=== PATIENT | female | born 1995 | race Caucasian/White ===

== ENCOUNTER 2017-08-30 21:12 | Inpatient (IN) | payer MEDICAID ==
[2017-08-30] MEDS ORDERED: Sodium Chloride 0.9% 10 ML Syringe FLUSH PRN (23:21)
[2017-08-31] MEDS ORDERED: Naloxone 0.4 MG/ML SDV IVPUSH PRN ×2 (01:27→03:34)
[2017-08-31] MEDS ORDERED: fentaNYL 100 MCG/2 ML SDV EPIDUR ONE (02:15)
[2017-08-31] MEDS ORDERED: Citric Acid/Sodium Citrate Solution 30 ML Cup PO ONE (02:15)
[2017-08-31] MEDS ORDERED: ePHEDrine 50 MG/ML SDV IV ONE (02:15)
[2017-08-31] MEDS ORDERED: fentaNYL 300 MCG in Ropivacaine 200 ML EPIDUR ONE (02:15)
[2017-08-31] MEDS ORDERED: hydrOXYzine HCl 50 MG/ML SDV IM PRN ×2 (03:34)
[2017-08-31] MEDS ORDERED: Promethazine 25 MG/ML SDV IV PRN (03:34)
[2017-08-31] MEDS ORDERED: Naloxone 0.4 MG in Sodium Chloride 0.9% 100 ML IV PRN (03:34)
[2017-08-31] MEDS ORDERED: ePHEDrine 50 MG/ML SDV IVPUSH PRN (03:34)
[2017-08-31] MEDS ORDERED: diphenhydrAMINE 50 MG/ML SDV IVPUSH PRN (03:34)
[2017-08-31] MEDS ORDERED: Ondansetron 4 MG/2 ML SDV IVPUSH PRN (03:37)
[2017-08-31] MEDS ORDERED: Lactated Ringers 500 ML IV ONE (03:45)
[2017-08-31] MEDS: ePHEDrine 50 MG/ML SDV IVPUSH PRN ×4 (05:35→05:50)
[2017-08-31] MEDS: Lactated Ringers 1,000 ML IV SCH ×3 (05:52→12:03)
[2017-08-31] MEDS ORDERED: Oxytocin/Normal Saline 10 UNIT/1,000 ML BAG IV SCH (08:15)
[2017-08-31] MEDS ORDERED: Sodium Chloride 0.9% 10 ML Syringe FLUSH PRN (13:39)
[2017-08-31] MEDS: Ibuprofen 800 MG Tab PO SCH ×2 (14:40→21:46)
[2017-08-31] MEDS ORDERED: Lidocaine 1% 20 ML MDV INJECT ONE (15:07)
[2017-08-31] MEDS ORDERED: diphenhydrAMINE 25 MG Cap PO PRN (15:29)
[2017-09-01] MEDS: Ibuprofen 800 MG Tab PO SCH ×2 (10:01→18:34)
[2017-09-01 19:29] VITALS: BP 123/77
--- NOTE | 2017-09-02 10:03 | DISCH ---
DISCHARGE DATE: 09/01/2017 Conor Goldberg is a 22-year-old, 2, para 2, female 1 day . Up, ambulating, doing well. No complicating issues. PHYSICAL EXAMINATION: U-2, tone satisfactory, perineum without conflict, voiding well. LABORATORY DATA: hemoglobin 9.1. ASSESSMENT: day #1. PLAN: Will be discharged later today once baby's well being has been assessed. Will be discharged home with ibuprofen or Tylenol at appropriate doses, vitamin 1 daily long-term care with lifting restrictions, activity, no napkins, no tampons, complementary care and well being, good nutrition, nursing the baby. /[id number] AMILCAR/WILLIAM
--- NOTE | 2017-09-02 11:56 | HP ---
ADMISSION DATE: 08/30/2017 HISTORY OF PRESENT ILLNESS: Conor Goldberg is a 22-year-old, 2, para 1 female, 39 weeks' gestation, admitted with spontaneous labor. Kavon off and on, she was admitted the night prior to this note. Satisfactory well being. Intact membranes. Group B strep negative. Had made dilatation changes in 2-4 cm. She was walked into the evening hours. Exam was satisfactory on admission. Good heart tones. rolfer hours, the epidural was placed with good analgesic benefit created conflict with quality of her contractions, but slept well through the night. Amniotomy was performed on the morning of 08/31/2016 with nice clear copious fluids. Labor was reluctant. Pitocin was started. Labor was created, but without great velocity. About 1 cm every 2 hours satisfactory well being. When she went to complete, I was asked to attend the delivery. Found to be in LUCILLE presentation. heart tones were satisfactory. Second stage of labor progressed without complications. About 6 quality pushes over 50 minutes time delivered in LUCILLE presentation without episiotomy. Perineum was protected. Nose, mouth, and oropharynx were suctioned, no nuchal cord delivered and Fidel is without complicating process. Child was suctioned again and placed on mom's tummy. Cord was left intact. Nursing staff addressed the well-being of the child, respiratory difficulty, was warmed and stimulated. Once the cord had quit pulsating, cord was clamped, three-cord vessels identified. Nursing staff addressed the child's well-being. Male , weight 8 pounds, scores 9 and 9. Cord blood was obtained for investigation as appropriate. There was spontaneous placental separation, three cord vessels intact. Uterine tone was maintained by intravenous Pitocin 500 mL over an hour, there was one brief episode of apnea, which responded to uterine stimulation. The perineum was inspected. There were couple of lateral abrasions on the labia minora superiorly. Nonbleeding in nature. Cervix was identified. Free of lacerations. Rectal exam was satisfactory. ASSESSMENT: 1. Normal spontaneous vaginal delivery. 2. Epidural analgesia. 3. Pitocin augmentation, vaginal delivery without episiotomy. Small vaginal abrasions. 4. An 8-pound 0-ounce male , scores of 9 and 9. 5. Nursing mom. PLAN: course, close observation. Pitocin will run accordingly, intervention and care as appropriate. /[id number] AMILCAR/WILLIAM
== END 2017-09-01 19:40 | disposition home or self-care (01) | DRG 560 ==
LOC: FB.OBCHECK 21:12 → FB.OB 21:15 → FB.OBCHECK 21:17 → FB.OB 21:18
PROVIDERS: ADMIT Family Medicine; ATTEND Family Medicine
PROC: 10E0XZZ Delivery of Products of Conception, External Approach (ICD-10-PCS; principal; 2017-08-30)
PROC: 10907ZC Drainage of Amniotic Fluid, Therapeutic from Products of Conception, Via Natural or Artificial Opening (ICD-10-PCS; 2017-08-30)
PROC: 3E033VJ Introduction of Other Hormone into Peripheral Vein, Percutaneous Approach (ICD-10-PCS; 2017-08-30)
PROC: 6A550ZT Pheresis of Cord Blood Stem Cells, Single (ICD-10-PCS; 2017-08-30)
DX: O75.89 Other specified complications of labor and delivery (principal); Z3A.39 39 weeks gestation of pregnancy; Z37.0 Single live birth
CPT/HCPCS: 36415; 51701; 59300; 59409; 85014; 85018; 99211; A9270-GY; J2590; J2795; J3010; J3410; J7050; J7120

== ENCOUNTER 2022-04-10 20:39 | Emergency (ER) | payer MEDICAID ==
[2022-04-11 02:54] VITALS: BP 132/89; PULSE 114
== END 2022-04-10 22:20 | disposition home or self-care (01) ==
LOC: FB.ED 20:39
DX: S99.922A Unspecified injury of left foot, initial encounter (principal); E66.9 Obesity, unspecified; Z68.33 Body mass index [BMI] 33.0-33.9, adult; W22.8XXA Striking against or struck by other objects, initial encounter
CPT/HCPCS: 73630-LT; 99283

== ENCOUNTER 2023-08-08 19:40 | Emergency (ER) | payer MEDICAID ==
[2023-08-08] MEDS ORDERED: Ondansetron 4 MG Tab.DIS PO ONE (19:41)
[2023-08-08] MEDS ORDERED: Sodium Chloride 0.9% 10 ML Syringe FLUSH PRN (19:58)
[2023-08-08] MEDS ORDERED: Ondansetron 4 MG/2 ML SDV IVPUSH ONE (19:58)
[2023-08-08] MEDS ORDERED: Sodium Chloride 0.9% 1,000 ML IV SCH (20:00)
[2023-08-08 20:19] LABS: BLOOD UREA NITROGEN,BUN 21 mg/dL (7-18); CALCIUM 9.3 mg/dL (8.6-10.2); CARBON DIOXIDE,CO2 28 mmol/L (21-32); CHLORIDE,CL 103 mmol/L (100-110); CREATININE 0.6 mg/dL (0.55-1.02); ESTIMATED GFR 126 mL/min (>60); GLUCOSE RANDOM 95 mg/dL (80-116); POTASSIUM,K 3.5 mmol/L (3.5-5.3); SODIUM,NA 136 mmol/L (135-145)
[2023-08-08 20:32] VITALS: BP 118/85; PULSE 81
== END 2023-08-08 21:24 | disposition home or self-care (01) ==
LOC: FB.ED 19:40
DX: U07.1 COVID-19 (principal); E86.0 Dehydration; E66.9 Obesity, unspecified; Z90.710 Acquired absence of both cervix and uterus; Z68.20 Body mass index [BMI] 20.0-20.9, adult
CPT/HCPCS: 36415; 80048; 96361; 96374; 99283; 99284; J2405; J7030; Q0162